=== PATIENT | male | born 1945 | race Caucasian/White ===

== ENCOUNTER 2023-06-16 12:40 | Emergency (ER) | payer MEDICARE, SELFPAY ==
[2023-06-16] VITALS (7 sets, daily range): BP systolic 136–164; BP diastolic 69–98; PULSE 72–90; RESP 16–18; TEMP 36.3–36.7; O2SAT 95–100
--- NOTE | ~2023-06-16 | CT_ITS ---
EXAMINATION: CT abdomen pelvis w con DATE: 06/16/2023 14:17 INDICATION: Right lower quadrant abdominal pain TECHNIQUE: Computed tomography (CT) of the abdomen and pelvis was performed with 100 mL Omnipaque-350 intravenous contrast. Automated exposure control and iterative reconstruction technique were employe d. The dose-length product was 244.47 mGy-cm. COMPARISON: None FINDINGS: There are few calcified nodules at the bilateral lung bases with calcified bilateral hilar and medias tinal lymph nodes, a few hepatic and multiple splenic calcific lesions, all consistent with old granu lomatous disease. Mild emphysema the left lower lobe. Heart size is normal. Atherosclerotic coronary artery calcification. No pericardial or pleural effusion. Small anterior right diaphragmatic hernia w ith small amount of omental fat extending anterior to the right atrium. There is an atypical bilobed appearance to the gallbladder with few 4-6 mm peripherally calcified gal lstones in the proximal aspect of the gallbladder and with high attenuation but less than calcific de nsity material at the fundal region of the gallbladder. The material appears to layer dependently and would favor additional small gallstones over enhancing neoplasm although slightly better assessed wi th comparison to precontrast imaging. Differential would also include focal adenomyomatosis. The conf iguration the gallbladder suggests possible scarring resulting in focal luminal narrowing in the mid gallbladder. Pancreas and right adrenal gland are normal. 9 mm left adrenal nodule which is likely too small to de finitively characterize. There are bilateral renal cysts the largest on the left measuring up to 7 cm . There are few bilateral nonobstructing renal calculi with 5 stones in the right kidney measuring up to 3-4 mm and 6 stones in the left kidney measuring up to 4 mm. 2 to 3 mm stone at the distalmost ri ght ureter with mild right hydroureteronephrosis. There is also 1-2 mm stone at the left ureterovesic ular junction. There is mild left hydroureter without bran hydronephrosis. Small fat-containing umbilical hernia. There is mild to moderate sigmoid predominant diverticulosis w ithout inflammatory change to suggest diverticulitis. Normal appendix. No bowel obstruction. No free intraperitoneal gas or fluid. No pathologically enlarged abdominal or pelvic lymphadenopathy. Grade 1 retrolisthesis L2 on L3 and grade 1 anterolisthesis L4 on L5. Mild to moderate lumbar spondylosis. IMPRESSION: 1. Bilateral nephrolithiasis with 2-3 lumbar stone at the distalmost right ureter with mild right hyd ronephrosis and 1-2 mm stone at the left ureterovesicular junction with mild left hydroureter without bran hydronephrosis. 2. Cholelithiasis with irregular confirmation of the gallbladder suggest possibility of scarring rela amari to chronic cholecystitis. In absence of precontrast imaging. Differential for the region of high attenuation at the fundus of the gallbladder would include less likely neoplasm or focal adenomyomato sis. Would consider further evaluation with pre and postcontrast MRI. 3. Diverticulosis. 4. Omental fat extending into an anterior right diaphragmatic hernia. 5. Small fat-containing umbilical hernia. Reviewed, dictated and finalized at location A. NING SUPPORT ASSISTANT IMPRESSION: 1. Bilateral nephrolithiasis with 2-3 lumbar stone at the distalmost right uret er with mild right hydronephrosis and 1-2 mm stone at the left ureterovesicular junction with mild left hydroureter without bran hydronephrosis. 2. Cholelithiasis with irregular confirmation of the gallbladder suggest possib ility of scarring related to chronic cholecystitis. In absence of precontrast i maging. Differential for the region of high attenuation at the fundus of the ga llbladder would
--- NOTE | ~2023-06-16 | US_ITS ---
EXAMINATION: US abdomen limited DATE: 06/16/2023 13:18 INDICATION: Right upper quadrant abdominal pain. TECHNIQUE: Multiple grayscale and Doppler ultrasound images of the abdomen were obtained. COMPARISON: None FINDINGS: The visualized portion of the head of the pancreas is normal. The liver is normal without f ocal lesion. The gallbladder is normal in size and contains gallstones. No gallbladder wall thickenin g or sonographic Salamanca sign. The common duct is normal and measures 8 mm. There is a 6 mm stone in t he common duct. IMPRESSION: 1. Cholelithiasis. No evidence of acute cholecystitis. 2. Choledocholithiasis. Reviewed, dictated and finalized at location A. CAPTAIN
--- NOTE | 2023-06-16 12:52 | ED.ABDPAIN ---
HPI - Abdominal Pain General Chief Complaint: Abdominal Pain Stated Complaint: ride side pain Time Seen by Provider: 06/16/23 12:52 History of Present Illness HPI narrative: Patient is a 77-year-old male with history of hypertension here with abdominal pain. Patient states that the abdominal pain began around 330 in the morning, woke him up from sleep. He notes that it is located on the right side, nonradiating. He states that his last bowel movement was approximately 2 days ago, typically has a bowel movement each day. No prior abdominal surgeries in the past. Believes he has had some decreased flatulence since pain began as well. No prior history of bowel obstruction. No prior colonoscopies, has only had negative screening Cologuards. He denies any associated nausea, fever, cough, congestion. No chest pain. Related Data Home Medications Medication Instructions Recorded Confirmed amlodipine 5 mg tablet 5 mg PO DAILY 01/22/22 06/16/23 cetirizine 10 mg tablet (Zyrtec) 10 mg PO DAILY PRN Wheezing 01/22/22 06/16/23 lisinopril 20 mg tablet 20 mg PO DAILY 01/22/22 06/16/23 multivitamin 1 tablet PO DAILY 01/22/22 06/16/23 naproxen 500 mg tablet 500 mg PO BID 01/22/22 06/16/23 niacin 500 mg tablet 500 mg PO DAILY 01/22/22 06/16/23 Allergies Allergy/AdvReac Type Severity Reaction Status Date / Time No Known Allergies Allergy Verified 06/16/23 12:49 Review of Systems Review of Systems: All systems reviewed & are unremarkable except as noted in HPI and below PMFSH Past Medical History Medical History Arthritis Contusion of left shoulder History of dental problems Left shoulder strain Surgical History Surgical History History of hernia surgery 1997 Dr. Jimenez Family History Family History Other Cerebrovascular accident Throat cancer Social History Social History Smoking status: Current every day smoker Tobacco type: cigars Alcohol intake: never Substance use type: does not use Living arrangements: with family Occupation/Education: retired Additional occupation/education comments: Pharmacist at [employer] Gender identity (if verbalized by the patient): Male Exam Narrative: GENERAL: Well-appearing, well-nourished, and in no acute distress. HEAD: Normocephalic, atraumatic. EYES: PERRLA and EOMI. ENT: Nares clear. Mucous membranes moist. NECK: Supple. CHEST: Clear to auscultation. No respiratory distress. HEART: Regular rate and rhythm. Normal peripheral pulses. ABDOMEN: Soft, right sided mid abdomen pain, negative Salamanca sign, nondistended, no rebound or guarding. No CVA tenderness bilaterally. EXTREMITIES: Normal range of motion. No edema. SKIN: Warm, dry, no rash. NEURO: No focal deficits. Alert and oriented x3. PSYCH: Normal mood and affect. Course Course Emergency Course: Chart review performed. Patient here with abdominal pain in [facility] since yesterday. Triage vitals normal. Only prior visits in our system were orthopedic surgery office notes where he was being seen for shoulder pain. Patient seen evaluated, nontoxic appearing. He has some right-sided abdominal tenderness, negative Salamanca sign, does appear to be a bit higher than McBurney's point. No CVA tenderness. Differentials include but not limited to cholecystitis, appendicitis, UTI, nephrolithiasis, constipation. Lab work, RUQ ultrasound and CT abdomen pelvis ordered. CBC shows WBC of 12.1, Creatinine of 1.43, no baseline for comparison in our system. US shows cholelithiasis, choledocholithiasis, no evidence of acute cholecystitis. CT abdomen pelvis shows bilateral nephrolithiasis with 2-3 mm stone at distalmost right ureter with mild hydronephrosis. 1-2 mm stone at the left UVJ. Cholelithiasis wi
--- NOTE | 2023-06-16 13:03 | ECG_ITS ---
Measurements Intervals [place] Rate: 84 P: 54 MI: 172 QRS: -71 QRSD: 154 T: 30 QT: 410 QTc: 486 Interpretive Statements SINUS RHYTHM SUPRAVENTRICULAR TRIGEMINY RIGHT BUNDLE BRANCH BLOCK LEFT ANTERIOR FASCICULAR BLOCK BASELINE ARTIFACT- V3 ABNORMAL ECG NO PREVIOUS ECG AVAILABLE FOR COMPARISON Electronically Signed On 06-16-2023 15:02:59 PEST CONTROL SERVICE TECHNICIAN by Ryan Lyons D.O.
[2023-06-16 13:34] LABS: Basophils Absolute Auto 0.06 K/mm3 (0.00-0.10); Basophils Percent Auto 0.5 % (0.0-1.0); Eosinophils Absolute Auto 0.01 K/mm3 (0.02-0.50); Eosinophils Percent Auto 0.1 % (1.0-6.0); Hematocrit 42.4 % (37.0-46.0); Hemoglobin 14.5 g/dL (12.4-15.3); Immature Granulocyte Absolute 0.04 K/mm3 (0.00-0.00); Immature Granulocyte Percent A 0.3 % (0.0-0.0); Lymphocytes Absolute Auto 1.26 K/mm3 (1.10-4.50); Lymphocytes Percent Auto 10.4 % (18.0-42.0); Mean Corpuscular HGB Conc 34.2 g/dL (32.0-36.0); Mean Corpuscular Hemoglobin 32.1 pg (27.0-31.0); Mean Corpuscular Volume 93.8 fL (78.0-102.0); Mean Platelet Volume 9.1 fl (8.7-11.0); Monocytes Absolute Auto 0.65 K/mm3 (0.10-0.90); Monocytes Percent Auto 5.4 % (2.0-11.0); Neutrophils Absolute Auto 10.1 K/mm3 (1.7-7.2); Neutrophils Percent Auto 83.3 % (50.0-70.0); Platelet Count Result 276 K/mm3 (150-420); Red Blood Count 4.52 M/mm3 (4.70-6.10); Red Cell Distribution Width 12.8 % (11.6-14.4); White Blood Count 12.1 K/mm3 (4.8-10.8)
[2023-06-16 13:48] LABS: Partial Thromboplastin Time 28.8 SEC (23.90-30.70); Prothrombin Time 10.7 Seconds (9.50-12.10)
[2023-06-16 13:55] LABS: Lactic Acid Reflex 1.3 mmol/L (0.4-2.0)
[2023-06-16 13:57] LABS: Alanine Aminotransferase 27 U/L (16-63); Albumin Level 4.2 g/dL (3.4-5.0); Alkaline Phosphatase 72 U/L (46-116); Anion Gap 7 mmol/L (8-16); Aspartate Amino Transferase 11 U/L (15-37); Bilirubin,Total 0.4 mg/dL (0.00-1.00); Blood Urea Nitrogen 19 mg/dL (7-18); Calcium 9.9 mg/dL (8.5-10.1); Carbon Dioxide 30 mmol/L (21-32); Chloride 100 mmol/L (98-108); Estimated CRCL calculation 36 ml/min; Estimated Glomerular Filt Rate 48; Glucose 126 mg/dL (70-99); Lipase 24 U/L (16-77); Osmolality Calculated 288 mOsm/kg (285-295); Potassium 3.8 mmol/L (3.5-5.1); Sodium 137 mmol/L (136-145); Total Protein 7.1 g/dL (6.4-8.2); Troponin I 10.7 ng/L (0.00-60.4)
[2023-06-16 14:09] LABS: SARS-CoV-2 RNA PCR Negative (Negative)
[2023-06-16 14:10] LABS: Appearance Urine Clear (Clear); Bilirubin Urine Negative (Negative); Blood Urine 3+ (Negative); Color Urine Light Yellow (Yellow); Glucose Urine UA Negative (Negative); Ketones Urine Negative (Negative); Leukocyte Esterase Ur Negative LEU/UL (Negative); Nitrate Urine Negative (Negative); Protein Urine Negative (Negative); Specific Grav Ur <= 1.005 (1.010-1.020); Urobilinogen Urine 0.2 mg/dL (0.2-1.0)
--- NOTE | 2023-06-16 14:15 | PC.NURSE ---
PT HAS RETURNED FROM CT, IS AWAITING RESULTS. AT BEDSIDE. NAD NOTED. PT DENIES ANY NEEDS OR COMPLAINTS. WILL CONTINUE TO MONITOR.
[2023-06-16 14:18] LABS: Add Urine Microscopic? YES
[2023-06-16 14:18] LABS: Influenza A QL RT-PCR Negative (Negative); Influenza B QL RT-PCR Negative (Negative); RSV RNA, RT-PCR Negative (Negative)
[2023-06-16 14:19] LABS: Bacteria Urine Trace /hpf; Squamous Epithelial Cell Urine Rare /hpf (Few); WBC Urine 0-3 /hpf (0-3)
[2023-06-16] MEDS: ONDANSETRON INJ 4 MG/2 ML VIAL IV PUSH (17:13)
[2023-06-16] MEDS: PIPERACILLIN/TAZ 4.5G/NS 100ML 4.5 GM/100 ML BAG IVPB (17:14)
[2023-06-16] MEDS: MORPHINE SULFATE (*CRX) 4 MG/ML INJ IV PUSH ×2 (17:15→21:51)
--- NOTE | 2023-06-16 18:09 | PC.NURSE ---
PT IS TALKING ON CELL PHONE WITHOUT DISTRESS. PT IS AWAITING ROOM ASSIGNMENT AT THIS TIME. PT IS AWARE OF PLAN OF CARE. NAD NOTED. WARM BLANKET PROVIDED. WILL CONTINUE TO MONITOR.
--- NOTE | 2023-06-16 19:05 | PC.NURSE ---
patient report received from AFUA Sexton. patient awake and alert without distress and ambulatory to bathroom without difficulty. Patient and spouse updated regarding NPO status and reminded of transfer arrangements pending. patient denies needs and reports pain is under control at this time.
[2023-06-16] MEDS: LACTATED RINGERS 1,000 ML 100 ML IV CONT (21:48)
--- NOTE | 2023-06-16 21:48 | PC.NURSE ---
patient updated by ERP regarding acceptance at [facility] in [place]. IVF hung and patient ambulatory to bathroom without difficutly. patient awaiting EMS transportation.
[2023-06-17 00:01] VITALS: BP 128/73; PULSE 72; RESP 16; TEMP 36.7; O2SAT 96
[2023-06-17] MEDS: PIPERACILLN/TAZ 3.375GM/NS50ML 3.375 GM/50 ML BAG IVPB (00:25)
--- NOTE | 2023-06-17 02:13 | PC.NURSE ---
patient asleep on stretcher, IVF infusing. RN monitoring. patient awaiting EMS transfer to [facility] in [place] pending weather.
[2023-06-17 03:55] VITALS: RESP 18; TEMP 37.2; O2SAT 96
[2023-06-17] MEDS: ONDANSETRON INJ 4 MG/2 ML VIAL IV PUSH (03:55)
[2023-06-17] MEDS: MORPHINE SULFATE (*CRX) 4 MG/ML INJ IV PUSH (03:56)
[2023-06-17] MEDS: LACTATED RINGERS 1,000 ML 100 ML IV CONT (03:58)
== END 2023-06-17 04:01 | disposition short-term general hospital (02) ==
PROVIDERS: Emergency Provider Student in an Organized Health Care Education/Training Program
DX: K80.20 Calculus of gallbladder without cholecystitis without obstruction (principal); N13.2 Hydronephrosis with renal and ureteral calculous obstruction; I10 Essential (primary) hypertension; F17.290 Nicotine dependence, other tobacco product, uncomplicated; Z79.899 Other long term (current) drug therapy; Z20.822 Contact with and (suspected) exposure to COVID-19; Z79.1 Long term (current) use of non-steroidal anti-inflammatories (NSAID)
CPT/HCPCS: 36415; 74177; 76705; 80053; 81001; 83605; 83690; 84484; 85025; 85610; 85730; 87637; 93005; 96361; 96365; 96366; 96375; 96376; 99285; J2270; J2405; J2543; J7120; Q9967

== ENCOUNTER 2024-04-16 16:12 | Outpatient (CLI) | payer MEDICARE, SELFPAY ==
--- NOTE | ~2024-04-16 | CT_ITS ---
CLINICAL INDICATION: Rectal bleeding and abdominal pain COMPARISON: 06/16/2023. TECHNIQUE: Multiple contiguous axial images of the abdomen and pelvis were performed following the ad ministration of with 100 mL Omnipaque-350 intravenous contrast The dose-length product (DLP) was 233.83 mGy-cm. Automated exposure control and iterative reconstruction technique were employed. FINDINGS/OBSERVATIONS: Visualized lower thorax: Calcified granuloma within the right lower lobe. Remainder of the bilateral lung bases are clear. The heart is of normal size, without pericardial effusion. Liver: The liver is not enlarged measuring 17 cm in longitudinal dimension. The liver does enhance homogeneously. Gallbladder and biliary system: Multiple stones are redemonstrated within the gallbladder, which is otherwise unremarkable. Pancreas: The pancreas enhances homogeneously without significant ductal dilatation. Spleen: Punctate calcifications within the spleen suggesting prior granulomatous disease. The remainder of the spleen otherwise enhances homogeneously and is not enlarged measuring 10 cm in l ongitudinal dimension. Kidneys: Multiple calcifications within the bilateral kidneys. The largest on the left measures 7 mm and is located within the the lower pole. The largest on the right measures 0.5 mm, also within the lower pole. Multiple subcentimeter foci of decreased attenuation within the bilateral kidneys, too small to francesco cterize but statistically representing cysts. Mild right-sided hydronephrosis is identified without an obstructing stone. 2 phleboliths are identif ied within the pelvis, unchanged from 06/16/2023 with clear visualization of the obstructing calculus a t that time. Adrenal glands: Unremarkable. Gastrointestinal tract: Diverticulosis within the rectosigmoid colon with mural thickening and surrounding inflammatory sears e (an interval change from previous examination dated 06/16/2023). This likely represents acute/early diverticulitis for which clinical correlation is needed. Follow-up to resolution is recommended as a malignancy has a similar appearance. . Appendix: The air-filled appendix is of normal caliber (axial series, images 83-91) Vasculature: Densely calcified atherosclerotic disease. No aneurysmal dilatation or significant stenosis. Lymph nodes: No pathologically enlarged or morphologically suspicious lymph nodes within the retroperitoneum or at the root of the mesentery. Pelvic structures: The bladder is significantly distended, with prostatic enlargement, demonstrating mass effect on the base of the bladder. Body wall and musculoskeletal: Small fat-containing infraumbilical hernia. Degenerative disease within the lumbosacral spine with grade 1 retrolisthesis of L2 onto L3. IMPRESSION: Sigmoid diverticulitis without a drainable fluid collection or gross free air. Follow-up to resolution is recommended as a malignancy has a similar appearance. Bilateral renal calculi. Cholelithiasis without cholecystitis. Reviewed, dictated and finalized at location A. TRAFFIC SYSTEMS TECHNICIAN IMPRESSION: Sigmoid diverticulitis without a drainable fluid collection or gross free air. Follow-up to resolution is recommended as a malignancy has a similar appearance . Bilateral renal calculi. Cholelithiasis without cholecystitis.
[2024-04-16 17:01] LABS: Anion Gap 11 mmol/L (4-12); Blood Urea Nitrogen 18 mg/dL (7-18); Carbon Dioxide 29 mmol/L (21-32); Chloride 104 mmol/L (98-108); Estimated Glomerular Filt Rate 57; Glucose 114 mg/dL (70-99); Osmolality Calculated 300 mOsm/kg (285-295); Potassium 4.4 mmol/L (3.5-5.1); Sodium 144 mmol/L (136-145)
[2024-04-16 17:09] LABS: Calcium 10.1 mg/dL (8.5-10.1)
== END 2024-04-16 16:13 | disposition home or self-care (01) ==
PROVIDERS: PCP Internal Medicine; Visit Provider Internal Medicine
DX: K62.5 Hemorrhage of anus and rectum (principal); R10.9 Unspecified abdominal pain; N40.0 Benign prostatic hyperplasia without lower urinary tract symptoms; K57.92 Diverticulitis of intestine, part unspecified, without perforation or abscess without bleeding; N20.0 Calculus of kidney; K80.20 Calculus of gallbladder without cholecystitis without obstruction
CPT/HCPCS: 36415; 74177; 80048; Q9967

== ENCOUNTER 2024-04-19 14:32 | Outpatient (CLI) | payer MEDICARE, SELFPAY ==
[2024-04-19 14:49] LABS: Basophils Absolute Auto 0.11 K/mm3 (0.00-0.10); Eosinophils Absolute Auto 0.14 K/mm3 (0.02-0.50); Eosinophils Percent Auto 1.3 % (1.0-6.0); Hematocrit 41.3 % (37.0-46.0); Hemoglobin 14.2 g/dL (12.4-15.3); Immature Granulocyte Absolute 0.03 K/mm3 (0.00-0.00); Immature Granulocyte Percent A 0.3 % (0.0-0.0); Lymphocytes Absolute Auto 2.33 K/mm3 (1.10-4.50); Lymphocytes Percent Auto 20.8 % (18.0-42.0); Mean Corpuscular HGB Conc 34.4 g/dL (32-36); Mean Corpuscular Hemoglobin 32.2 pg (27.0-31.0); Mean Corpuscular Volume 93.7 fL (78.0-102.0); Mean Platelet Volume 9.1 fl (8.7-11.0); Monocytes Absolute Auto 0.78 K/mm3 (0.10-0.90); Neutrophils Percent Auto 69.6 % (50.0-70.0); Platelet Count Result 289 K/mm3 (150-420); Red Blood Count 4.41 M/mm3 (4.70-6.10); White Blood Count 11.2 K/mm3 (4.8-10.8)
[2024-04-19 15:23] LABS: INR 0.9; Partial Thromboplastin Time 28.8 Sec (23.9-30.70); Prothrombin Time 10.4 Seconds (9.50-12.1)
[2024-04-19 15:42] LABS: Alanine Aminotransferase 22 U/L (16-63); Alkaline Phosphatase 84 U/L (46-116); Anion Gap 9 mmol/L (4-12); Aspartate Amino Transferase 21 U/L (15-37); Bilirubin,Total 0.4 mg/dL (0.00-1.00); Blood Urea Nitrogen 15 mg/dL (7-18); Calcium 9.8 mg/dL (8.5-10.1); Carbon Dioxide 30 mmol/L (21-32); Chloride 106 mmol/L (98-108); Estimated Glomerular Filt Rate 56; Glucose 134 mg/dL (70-99); Osmolality Calculated 302 mOsm/kg (285-295); Potassium 4.5 mmol/L (3.5-5.1); Sodium 145 mmol/L (136-145); Total Protein 7.1 g/dL (6.4-8.2)
[2024-04-19 16:06] LABS: CRP < 0.5 mg/dL (0.0-0.9)
== END 2024-04-19 14:33 | disposition home or self-care (01) ==
PROVIDERS: PCP Internal Medicine; Visit Provider Internal Medicine
DX: K62.5 Hemorrhage of anus and rectum (principal); R10.9 Unspecified abdominal pain; N40.0 Benign prostatic hyperplasia without lower urinary tract symptoms
CPT/HCPCS: 36415; 80053; 84153; 85025; 85610; 85730; 86140